=== PATIENT | female | born 1975 | race Caucasian/White ===

== ENCOUNTER 2018-04-05 09:58 | Emergency (ER) | payer SELFPAY ==
[~2018-04-05] VITALS: Ht 165.1 cm; Wt 59.5 kg
[2018-04-05 11:41] LABS: APPEARANCE SL.HAZY ((CLEAR)); BILIRUBIN NEGATIVE; BLOOD NEGATIVE; COLOR YELLOW ((YELLOW)); GLUCOSE (STRIP) NEGATIVE; KETONES NEGATIVE; LEUKOCYTES SMALL; NITRITE NEGATIVE; PROTEIN (STRIP) NEGATIVE; SPECIFIC GRAVITY 1.018 (1.000-1.030); UROBILINOGEN 0.2 MG/DL (0.2-1.0)
[2018-04-05 11:50] LABS: HEMATOCRIT 37.3 % (36.0-46.0); HEMOGLOBIN 12.2 G/DL (11.9-15.5); MCH 27.1 PG (29.0-34.0); MCHC 32.7 G/DL (30.0-36.0); MCV 82.9 FL (83-99); PLATELET COUNT 310 K/uL (156-360); RBC DIS.WIDTH-CV 14.1 % (11.8-14.6); RBC DIS.WIDTH-SD 42.7 % (39-53); WHITE BLOOD COUNT 8.6 K/uL (4.1-10.2)
[2018-04-05 11:52] LABS: BACTERIA RARE /HPF; EPITHELIAL CELLS RARE /HPF; MUCUS TRACE /LPF; RED BLOOD CELLS 0-5 /HPF (0-5)
[2018-04-05 11:59] LABS: CHLORIDE 109 mEq/L (99-109); POTASSIUM 4.1 mEq/L (3.7-5.4); SODIUM 141 mEq/L (136-147)
[2018-04-05 12:00] LABS: GLUCOSE 73 mg/dL (70-99)
[2018-04-05 12:04] LABS: CREATININE 0.7 mg/dL (0.6-1.3); GFR ESTIMATE (CALCULATED) > 59 mL/min/
[2018-04-05 12:05] LABS: UREA NITROGEN (BUN) 13 mg/dL (9-23)
[2018-04-05 12:07] LABS: CREATINE KINASE 34 IU/L (1-294)
[2018-04-05 12:44] VITALS: BP 171/84
[2018-04-05] MEDS ORDERED: LEVAQUIN750 MG PO (12:48)
[2018-04-05] MEDS ORDERED: FLEXERIL10 MG PO (12:49)
[2018-04-05] MEDS ORDERED: PROVENTIL HFA6.7 GM IH (12:49)
[2018-04-05] MEDS ORDERED: NORCO 5/3251 TABLET PO (12:49)
== END 2018-04-05 13:16 | disposition home or self-care (01) ==
LOC: EME 09:58
PROVIDERS: Emergency Medicine Emergency Medical Services
DX: S40.012A Contusion of left shoulder, initial encounter (principal); Y93.01 Activity, walking, marching and hiking; G62.9 Polyneuropathy, unspecified; N39.0 Urinary tract infection, site not specified; F17.200 Nicotine dependence, unspecified, uncomplicated
CPT/HCPCS: 71046; 80048; 81003; 82550; 85027; 99281; 99284